=== PATIENT | male | born 1970 | race American Indian/Alaskan Native ===

== ENCOUNTER 2017-08-09 10:16 | Emergency (ER) | payer SELFPAY ==
[2017-08-09 11:02] VITALS: BP 156/93
--- NOTE | 2017-08-09 12:24 | XRay Report ---
LEFT HAND, 3 views: History: Left hand pain. The bony architecture is intact. Bony alignment is normal. No soft tissue abnormalities are seen. The joint spaces appear preserved. IMPRESSION: Normal left hand.
--- NOTE | 2017-08-09 13:54 | Cat Scan Report ---
CT HEAD WITHOUT CONTRAST: HISTORY: Loss of consciousness, pain. TECHNIQUE: Sequential 2.5mm CT images. COMPARISON: 10/30/15. FINDINGS: Cerebral Parenchyma: Within normal limits. Cerebellum: Within normal limits. Brainstem: Within normal limits. Ventricles: Normal. Sella: Normal. Extra-axial spaces: Normal. Basal Cisterns: Normal. Intracranial Hemorrhage: None. Midline Shift: None. Calvarium: Normal. Sinuses: Normal. Mastoid Air Cells: Normal. Visualized Orbits: Normal. IMPRESSION: Cranial CT scan within normal limits.
--- NOTE | 2017-08-09 13:55 | Cat Scan Report ---
CT SCAN OF THE CERVICAL SPINE: HISTORY: Loss of consciousness, pain. TECHNIQUE: Contiguous 1.25 mm axial images of the cervical spine were obtained. Sagittal and coronal reformatted images. FINDINGS: There is normal alignment of the cervical spine. The body, pedicles and posterior ligaments appear normal. No evidence of fracture or subluxation is seen. The spinal canal appears normal. The prevertebral soft tissues appear normal. IMPRESSION: Unremarkable CT of the cervical spine. No acute process is noted.
[2017-08-09] MEDS ORDERED: TORADOL IM ONE (17:04)
--- NOTE | 2017-08-09 17:17 | Emergency Department Report ---
ED Headache HPI - General Chief Complaint: Headache Stated Complaint: HIT IN HEAD Time Seen by Provider: 08/09/17 17:04 - History of Present Illness Initial Comments: This is a 47-year-old male nontoxic, well nourished in appearance, no acute signs of distress presents to the ED with c/o of headache, neck pain, and left hand pain. Patient stated this morning around 9 AM he was opening a gate in his storage room and a metal beam that was on side of the storage landed on his right sided head and neck region. Patient stated he does not know why his left hand hurts but believes the beam also hit his hand. Patient stated had loss consciousness that was brief. Patient denies any bystanders. Patient denies any numbness, tingling, fever, chills, nausea, vomiting, blurred vision, visual changes, abdominal pain. Patient describes headache as aching diffusely with level of 8 out of 10. Patient denies thunderclap headache. Patient denies any allergies. Past medical history includes diabetes and hypertension. Timing/Duration: 4-6 hours Quality: mild Head Injury Location: occipital (right ) Recent Head Trauma: head trauma < 24 hrs ago Associated Symptoms: loss of consciousness, stiff neck. denies: confusion, fatigue, facial pain, fever/chills, flushing, nausea/vomiting, nasal congestion , nasal drainage, numbness in legs/feet, rash, seizures, sinus infection, vision changes, weakness Allergies/Adverse Reactions: Allergies No Known Allergies Allergy (Verified 08/09/17 11:01) Home Medications: Ambulatory Orders Butalb/Acetaminophen/Caffeine [Fioricet 50-300-40 mg CAP] 2 cap PO Q8HR PRN #14 cap 10/30/15 Cyclobenzaprine [Flexeril] 10 mg PO QHS PRN #7 tablet 08/09/17 Ibuprofen [Motrin] 600 mg PO Q8H PRN #30 tablet 08/09/17 ED Review of Systems ROS: Stated complaint: HIT IN HEAD Other details as noted in HPI Constitutional: denies: chills, fever Eyes: denies: eye pain, eye discharge, vision change ENT: denies: ear pain, throat pain Respiratory: denies: cough, shortness of breath, wheezing Cardiovascular: denies: chest pain, palpitations Endocrine: no symptoms reported Gastrointestinal: denies: abdominal pain, nausea, diarrhea Genitourinary: denies: urgency, dysuria Musculoskeletal: denies: back pain, joint swelling, arthralgia Skin: denies: rash, lesions Neurological: headache. denies: weakness, paresthesias Psychiatric: denies: anxiety, depression Hematological/Lymphatic: denies: easy bleeding, easy bruising ED Past Medical Hx - Past Medical History Previous Medical History?: Yes Hx Hypertension: Yes Hx Diabetes: Yes Additional medical history: neuropathy - Surgical History Past Surgical History?: No - Social History Smoking Status: Never Smoker Substance Use Type: None - Medications Home Medications: Home Medications Medication Instructions Recorded Confirmed Last Taken Type Butalb/Acetaminophen/Caffeine 2 cap PO Q8HR PRN #14 cap 10/30/15 Unknown Rx [Fioricet 50-300-40 mg CAP] Cyclobenzaprine [Flexeril] 10 mg PO QHS PRN #7 tablet 08/09/17 Unknown Rx Ibuprofen [Motrin] 600 mg PO Q8H PRN #30 tablet 08/09/17 Unknown Rx ED Physical Exam - General Limitations: No Limitations General appearance: alert, in no apparent distress - Head Head exam: Present: atraumatic, normocephalic - Expanded Head Exam Expanded Head exam: Present: general tenderness (left lobe region occipital). Absent: laceration, abrasion, contusion, hematoma, melgoza's sign 1 - tenderness - Eye Eye exam: Present: normal appearance, PERRL, EOMI Pupils: Present: normal accommodation - ENT ENT exam: Present: normal exam, normal orophraynx, mucous membranes moist, TM's normal bilaterally, normal external ear exam - Neck Neck exam: Present: normal inspection, full ROM. Absent: tenderness, meningismus, lymphadenopathy, thyromegaly - Respiratory Respiratory exam: Present: normal lung sounds bilaterally. Absent: respiratory distress, wheezes, rales, rhonchi, stridor, chest wall tenderness, accessory muscle use, decreased breath sounds, prolonged expiratory - Cardiovascular Cardiovascular Exam: Present: regular rate, normal rhythm, normal heart sounds. Absent: bradycardia, tachycardia, irregular rhythm, systolic murmur, diastolic murmur, rubs, gallop - GI/Abdominal GI/Abdominal exam: Present: soft, normal bowel sounds. Absent: distended, tenderness, guarding, rebound, rigid, diminished bowel sounds - Rectal Rectal exam: Present: deferred - Extremities Exam Extremities exam: Present: normal inspection, full ROM, tenderness, normal capillary refill. Absent: pedal edema, joint swelling, calf tenderness - Expanded Upper Extremity Exam Left General: Present: normal inspection Shoulder Exam: Present: normal inspection, full ROM Upper Arm exam: Present: normal inspection, full ROM Elbow exam: Present: normal inspection, full ROM Forearm Wrist exam: Present: normal inspection, full ROM. Absent: tenderness, swelling, abrasion, laceration, ecchymosis, deformity, crepidus, dislocation, erythema, tenderness over anatomical snuff box, pain with axial thumb loading Hand Wrist exam: Present: normal inspection, full ROM, tenderness. Absent: swelling, abrasion, laceration, ecchymosis, deformity, crepidus, dislocation, erythema, amputation, nail avulsion, subungual hematoma Hand L/R Back: 1 - pain Neuro motor exam: Present: wrist extension intact, thumb opposition intact, thumb IP flexion intact, thumb adduction intact, fingers 2-5 abduction intact Neurosensory exam: Present: 2-point discrimination, radial nerve intact, ulnar nerve intact, median nerve intact Vascular: Present: vascular compromise, normal capillary refill, radial pulse, brachial pulse, ulnar pulse - Back Exam Back exam: Present: normal inspection, full ROM, paraspinal tenderness (right cervical region). Absent: tenderness, CVA tenderness (R), CVA tenderness (L), muscle spasm, vertebral tenderness, rash noted - Expanded Back Exam Expanded Back exam: Absent: saddle anesthesia Back exam: Negative Straight Leg Raising: Left, Right - Neurological Exam Neurological exam: Present: alert, oriented X3, CN II-XII intact, normal gait, reflexes normal - Expanded Neurological Exam Expanded Patient oriented to: Present: person, place, time Cranial nerves: EOM's Intact: Normal, Gag Reflex: Normal, Tongue Deviation: Normal, Nystagmus: Normal, Facial Sensation: Normal, Facial Palsy with Forehead Movement: Normal, Facial Palsy without Forehead Movement: Normal Cerebellar function: Finger to Nose: Normal, Heel to Peoples: Normal, Romberg: Normal Upper motor neuron: Jesus Neglect: Normal, Pronator Drift: Normal, Babinski Sign : Normal, Sensory Extinction: Normal Sensory exam: Upper Extremity Light Touch: Normal, Upper Extremity Pin Prick: Normal, Upper Extremity Temperature: Normal, UE 2 Point Discrimination: Normal, Lower Extremity Light Touch: Normal, Lower Extremity Pin Prick: Normal, Lower Extremity Temperature: Normal, LE 2 Point Discrimination: Normal Motor strength exam: RUE: 5, LUE: 5, RLE: 5, LLE: 5 DTR: bicep (R): 2+, bicep (L): 2+, tricep (R): 2+, tricep (L): 2+, knee (R): 2+ , knee (L): 2+, ankle (R): 2+, ankle (L): 2+ Best Eye Response (Emma): (4) open spontaneously Best Motor Response (Emma): (6) obeys commands Best Verbal Response (Emma): (5) oriented Emma Total: 15 - Psychiatric Psychiatric exam: Present: normal affect, normal mood - Skin Skin exam: Present: warm, dry, intact, normal color. Absent: rash ED Course Vital Signs 08/09/17 10:58 Temperature 98.4 F Pulse Rate 77 Respiratory 16 Rate Blood Pressure 156/93 O2 Sat by Pulse 99 Oximetry - Reevaluation(s) Reevaluation #1: 08/09/17 17:20 Patient is speaking in full sentences with no signs of distress noted. ED Medical Decision Making - Medical Decision Making This is a 47-year-old male that presents with headache and muscle neck and hand strain. Patient is stable and was examined by me. CT of cervical spine and head has been obtained and dictated by the radiologist within normal limits. Xray of the hand obtained and within normal limits. Patient was notified of the Ct and xray results with no questions noted by the patient. There is no bruising or hematoma noted to the skull or hand. No obivous signs of deformity noted. Patient is neurologically stable. Patient received Toradol 30 IM which patient stated headache and neck pain has improved and subsided. Patient is discharge with flexeril and motrin and was instructed note to operate any machinery while taking flexeril due to drowsiness. Patient was also instructed to avoid contact sports and head trauma. Patient was instructed and referred to Follow-up with a primary care doctor in 3-5 days or if symptoms worsen and continue return to emergency room as soon as possible. At time of discharge, the patient does not seem toxic or ill in appearance. No acute signs of distress noted. Patient agrees to discharge treatment plan of care. No further questions noted by the patient. Critical care attestation.: If time is entered above; I have spent that time in minutes in the direct care of this critically ill patient, excluding procedure time. ED Disposition Clinical Impression: Headache Qualifiers: Headache type: unspecified Headache chronicity pattern: acute headache Intractability: not intractable Qualified Code(s): R51 - Headache Neck muscle strain Qualifiers: Encounter type: initial encounter Qualified Code(s): S16.1XXA - Strain of muscle, fascia and tendon at neck level, initial encounter Hand strain Qualifiers: Encounter type: initial encounter Laterality: left Qualified Code(s): S66.912A - Strain of unspecified muscle, fascia and tendon at wrist and hand level, left hand, initial encounter Disposition: DC-01 TO HOME OR SELFCARE Is pt being admited?: No Does the pt Need Aspirin: No Condition: Stable Instructions: Cyclobenzaprine (By mouth), Ibuprofen (By mouth), Post Concussion Syndrome (ED), Acute Headache (ED) Additional Instructions: Follow-up with your primary care doctor in 3-5 days or if symptoms worsen such as bladder or bowel stability, chest pain, short of breath, numbness or tingling sensation in extremities, headache, dizziness, visual changes, nausea vomiting, or abdominal pain, return back to emergency room as was possible. Take ibuprofen and Flexeril as prescribed. Do not operate heavy machinery while taking Flexeril due to sedation Avoid contact sports or any head trauma. Prescriptions: Cyclobenzaprine [Flexeril] 10 mg PO QHS PRN #7 tablet PRN Reason: Muscle Spasm Ibuprofen [Motrin] 600 mg PO Q8H PRN #30 tablet PRN Reason: Pain Referrals: PRIMARY CAREMD [Primary Care Provider] - 3-5 Days ANI VALLEJO MD [Staff Physician] - 3-5 Days [facility] [Outside] - 3-5 Days [facility] [Outside] - 3-5 Days Forms: Work/School Release Form(ED)
== END 2017-08-09 17:36 | disposition home or self-care (01) ==
LOC: ED 10:16
DX: S16.1XXA Strain of muscle, fascia and tendon at neck level, initial encounter (principal); S66.912A Strain of unspecified muscle, fascia and tendon at wrist and hand level, left hand, initial encounter; R51 Headache; I10 Essential (primary) hypertension; E11.9 Type 2 diabetes mellitus without complications; G62.9 Polyneuropathy, unspecified; W31.89XA Contact with other specified machinery, initial encounter; Y93.89 Activity, other specified; Y99.8 Other external cause status; Y92.89 Other specified places as the place of occurrence of the external cause
CPT/HCPCS: 70450; 72125; 73130; 96372; 99284; J1885

== ENCOUNTER 2017-10-23 03:39 | Emergency (ER) | payer SELFPAY ==
[2017-10-23 05:15] LABS: Alanine Aminotransferase 17 units/L (7-56); BUN/Creatinine Ratio 23; Blood Urea Nitrogen 16 mg/dL (9-20); Calcium 9.4 mg/dL (8.4-10.2); Hemolysis Index 10
[2017-10-23 05:23] LABS: Hematocrit 35.9 % (35.5-45.6); Hemoglobin 11.9 gm/dl (11.8-15.2); Mean Corpuscular HGB Conc 33 % (32-34); Mean Corpuscular Hemoglobin 29 pg (28-32); Mean Corpuscular Volume 87 fl (84-94); Red Blood Count 4.14 M/mm3 (3.65-5.03)
[2017-10-23 05:24] LABS: Basophils # (Auto) 0.1 K/mm3 (0.0-0.1); Basophils % (Auto) 1.2 % (0.0-1.8); Eosinophils # (Auto) 0.4 K/mm3 (0.0-0.4); Eosinophils % (Auto) 3.6 % (0.0-4.3); Lymphocytes # (Auto) 3.8 K/mm3 (1.2-5.4); Lymphocytes % (Auto) 36.7 % (13.4-35.0); Mean Platelet Volume 8.3 fl (6-12); Monocytes % (Auto) 9.6 % (0.0-7.3); Platelet Count 326 K/mm3 (140-440); Red Cell Distribution Width 13.4 % (13.2-15.2)
[2017-10-23 06:06] LABS: Amorphous Crystals,Urine Few; Bilirubin,Urine NEG (Negative); Blood,Urine NEG (Negative); Color,Urine Straw (Yellow); Protein,Urine <15 mg/dL mg/dL (Negative); Urobilinogen,Urine < 2.0 mg/dL (<2.0)
[2017-10-23] MEDS ORDERED: NORCO 10/325 PO ONE (08:18)
--- NOTE | 2017-10-23 08:35 | Emergency Department Report ---
ED Back Pain/Injury HPI - General Stated Complaint: FREQ/BURNING URINATION Time Seen by Provider: 10/23/17 08:05 Source: patient Limitations: No Limitations - History of Present Illness Initial Comments: 47-year-old male past medical history diabetes, hypertension presents with complaint of 4-5 days of left flank pain radiating down the left buttock region. Patient denies any fever chills nausea vomiting or trauma. Denies any falls or direct trauma to area. States he took some Tylenol and Motrin and Vicodin at home with minimal relief. Patient denies any rash. Patient is awake alert and oriented 3. States he has been urinating slightly more than usual. Denies any dysuria or hematuria. Denies any chest pain shortness of breath or palpitations. MD Complaint: back pain Onset/Timin -: days(s) Radiation: buttocks Severity: moderate Severity scale (0 -10): 6 Quality: sharp, aching Consistency: intermittent Improves With: none - Related Data Previous Rx's Medication Instructions Recorded Last Taken Type Butalb/Acetaminophen/Caffeine 2 cap PO Q8HR PRN #14 cap 10/30/15 Unknown Rx [Fioricet 50-300-40 mg CAP] Cyclobenzaprine [Flexeril] 10 mg PO QHS PRN #7 tablet 08/09/17 Unknown Rx Ibuprofen [Motrin] 600 mg PO Q8H PRN #30 tablet 08/09/17 Unknown Rx HYDROcodone/APAP 10-325 [Milan 1 each PO Q6HR PRN #10 tablet 10/23/17 Unknown Rx 10/325] Ibuprofen [Motrin] 600 mg PO Q8H PRN #25 tablet 10/23/17 Unknown Rx Ondansetron [Zofran Odt] 4 mg PO Q8H PRN #8 tab.rapdis 10/23/17 Unknown Rx Allergies Allergy/AdvReac Type Severity Reaction Status Date / Time No Known Allergies Allergy Verified 08/09/17 11:01 ED Review of Systems ROS: Stated complaint: FREQ/BURNING URINATION Other details as noted in HPI Constitutional: denies: chills, fever Eyes: denies: eye pain, eye discharge, vision change ENT: denies: ear pain, throat pain Respiratory: denies: cough, shortness of breath, wheezing Cardiovascular: denies: chest pain, palpitations Endocrine: no symptoms reported Gastrointestinal: denies: abdominal pain, nausea, diarrhea Genitourinary: denies: urgency, dysuria Musculoskeletal: denies: back pain, joint swelling, arthralgia Skin: denies: rash, lesions Neurological: denies: headache, weakness, paresthesias Psychiatric: denies: anxiety, depression Hematological/Lymphatic: denies: easy bleeding, easy bruising ED Past Medical Hx - Past Medical History Previous Medical History?: Yes Hx Hypertension: Yes Hx Diabetes: Yes Additional medical history: neuropathy - Surgical History Past Surgical History?: No - Social History Smoking Status: Former Smoker Substance Use Type: None - Medications Home Medications: Home Medications Medication Instructions Recorded Confirmed Last Taken Type Butalb/Acetaminophen/Caffeine 2 cap PO Q8HR PRN #14 cap 10/30/15 Unknown Rx [Fioricet 50-300-40 mg CAP] Cyclobenzaprine [Flexeril] 10 mg PO QHS PRN #7 tablet 08/09/17 Unknown Rx Ibuprofen [Motrin] 600 mg PO Q8H PRN #30 tablet 08/09/17 Unknown Rx HYDROcodone/APAP 10-325 [Milan 1 each PO Q6HR PRN #10 tablet 10/23/17 Unknown Rx 10/325] Ibuprofen [Motrin] 600 mg PO Q8H PRN #25 tablet 10/23/17 Unknown Rx Ondansetron [Zofran Odt] 4 mg PO Q8H PRN #8 tab.rapdis 10/23/17 Unknown Rx ED Physical Exam - General Limitations: No Limitations General appearance: alert, in no apparent distress - Head Head exam: Present: atraumatic, normocephalic - Eye Eye exam: Present: normal appearance, PERRL, EOMI - ENT ENT exam: Present: mucous membranes moist - Neck Neck exam: Present: normal inspection - Respiratory Respiratory exam: Present: normal lung sounds bilaterally. Absent: respiratory distress - Cardiovascular Cardiovascular Exam: Present: regular rate, normal rhythm. Absent: systolic murmur, diastolic murmur, rubs, gallop - GI/Abdominal GI/Abdominal exam: Present: soft (abdomen soft nontender nondistended. Obese abdomen), normal bowel sounds - Rectal Rectal exam: Present: deferred - Extremities Exam Extremities exam: Present: normal inspection, full ROM - Back Exam Back exam: Present: normal inspection, CVA tenderness (L) (left-sided flank tenderness on percussion) - Neurological Exam Neurological exam: Present: alert, oriented X3, CN II-XII intact, normal gait - Psychiatric Psychiatric exam: Present: normal affect, normal mood - Skin Skin exam: Present: warm, dry, intact, normal color. Absent: rash ED Course Vital Signs 10/23/17 10/23/17 10/23/17 04:28 04:37 08:44 Temperature 98.5 F Pulse Rate 78 72 Respiratory 1 L 18 Rate Blood Pressure 179/93 180/87 O2 Sat by Pulse 98 98 Oximetry ED Medical Decision Making - Lab Data Result diagrams: 10/23/17 04:40 10/23/17 04:40 - Medical Decision Making A/P: Renal colic 1-Zofran, Motrin, Milan when necessary 2-case discussed with Dr. Mueller before discharge. This patient's urinalysis shows no nitrites no leukocytes or leukocyte esterase will refrain from antibiotics at this time 3-CT shows some perinephric fat stranding which is likely inflammatory as urinalysis is unremarkable. 4- I advised patient to return to the ED for worsening pain, fever chills nausea vomiting, inability to tolerate anything by mouth Critical care attestation.: If time is entered above; I have spent that time in minutes in the direct care of this critically ill patient, excluding procedure time. ED Disposition Clinical Impression: Renal colic on left side Disposition: DC-01 TO HOME OR SELFCARE Is pt being admited?: No Does the pt Need Aspirin: No Condition: Stable Instructions: Renal Colic (ED), Flank Pain (ED) Prescriptions: HYDROcodone/APAP 10-325 [Milan 10/325] 1 each PO Q6HR PRN #10 tablet PRN Reason: Pain Ibuprofen [Motrin] 600 mg PO Q8H PRN #25 tablet PRN Reason: Pain Ondansetron [Zofran Odt] 4 mg PO Q8H PRN #8 tab.rapdis PRN Reason: Nausea Referrals: [facility] [Provider Group] - 3-5 Days [facility] [Provider Group] - 3-5 Days Forms: Work/School Release Form(ED) Time of Disposition: 09:13
[2017-10-23 08:50] VITALS: BP 180/87
[2017-10-23] MEDS ORDERED: CATAPRES ONE (08:50)
[2017-10-23] MEDS ORDERED: CATAPRES PO ONE (08:52)
--- NOTE | 2017-10-23 08:58 | Cat Scan Report ---
FINAL REPORT EXAM: CT ABDOMEN PELVIS WO CON HISTORY: left flank pain ? kidney stone TECHNIQUE: CT images obtained through the Abdomen and Pelvis without contrast. Transaxial,coronal and sagittal reformats are provided. PRIORS: None. FINDINGS: Imaged intrathoracic contents are unremarkable. Kidneys are normal in size, axis and position. No hydronephrosis or nephrolithiasis. Mild bilateral perinephric stranding/scarring. Minimally distended urinary bladder is with incomplete evaluation of the wall. The ureters are normal in course and caliber. No stones are seen within the urinary bladder. The liver, gallbladder, pancreas, spleen, and adrenal glands demonstrate a normal noncontrast appearance. Hollow enteric organs are normal in course and caliber. Appendix is normal. No intra-abdominal free air/fluid or lymphadenopathy. Aorta is normal in course and caliber. Superficial soft tissues are unremarkable. No acute or aggressive appearing skeletal findings. IMPRESSION: No CT evidence of obstructive urolithiasis or other acute abdominal or pelvic findings. Mild bilateral perinephric stranding may be acute or chronic. Correlation for recently passed stone or upper urinary tract infection.
[2017-10-23] MEDS ORDERED: TORADOL IM ONE (09:03)
== END 2017-10-23 09:21 | disposition home or self-care (01) ==
LOC: ED 03:39
DX: N23 Unspecified renal colic (principal); I10 Essential (primary) hypertension; E11.9 Type 2 diabetes mellitus without complications
CPT/HCPCS: 36415; 74176; 80053; 81001; 85025; 96372; 99284; J1885

== ENCOUNTER 2018-08-05 07:30 | Emergency (ER) | payer OTHER ==
[2018-08-05 07:40] VITALS: BP 176/97
[2018-08-05] MEDS ORDERED: NACL 0.9% 1000 ML 1,000 ML IV ONE (07:51)
[2018-08-05] MEDS ORDERED: TORADOL IV ONE (07:51)
--- NOTE | 2018-08-05 07:52 | Emergency Department Report ---
ED Back Pain/Injury HPI - General Chief Complaint: Back Pain/Injury Stated Complaint: KIDNEY STONE Time Seen by Provider: 08/05/18 07:44 Source: patient Limitations: No Limitations - History of Present Illness Initial Comments: Mr. Torres is a 48-year-old -[place] male who comes to the ER today complaining of back pain. The provider went to get the patient from the waiting room and he was walking fine when he was in respiratory to his seat, however, when I called him to the door he stood up and was very dramatically limping on both legs holding his lower back. He proceeded to tell me that he has had kidney stones in the past and that's what he believes his pain is from. He denies hematuria or dysuria. Patient is on metformin, insulin 7030, clonidine 0.2, and additional medications that he cannot remember. He endorses a history of kidney stones 2 years ago, diabetes, hypertension and obesity. He denies coronary artery disease or strokes. Patient denies trauma. He did state that he climbed into a truck yesterday and thinks that maybe he strained his back then. Patient has been seen as before in the past for his chronic back pain, which she denies today. Patient has also been seen for presumed kidney stones in the ER in the past. -: hour(s) Similar Symptoms Previously: Yes Place: home Severity: severe Quality: aching Consistency: constant Improves With: none Worsens With: none Context: unknown Associated Symptoms: denies other symptoms - Related Data Previous Rx's Medication Instructions Recorded Last Taken Type Cyclobenzaprine [Flexeril] 10 mg PO QHS PRN #7 tablet 08/05/18 Unknown Rx Naproxen [Naprosyn] 500 mg PO BID PRN #20 tablet 08/05/18 Unknown Rx Tamsulosin HCl [Flomax] 0.4 mg PO DAILY #10 cap.er.24h 08/05/18 Unknown Rx Allergies Allergy/AdvReac Type Severity Reaction Status Date / Time No Known Allergies Allergy Verified 08/09/17 11:01 ED Review of Systems ROS: Stated complaint: KIDNEY STONE Other details as noted in HPI Comment: All other systems reviewed and negative Constitutional: denies: chills, fever Eyes: denies: eye pain ENT: denies: ear pain Respiratory: denies: cough Cardiovascular: denies: dyspnea on exertion Endocrine: denies: excessive sweating Gastrointestinal: as per HPI. denies: abdominal pain, nausea, vomiting, d iarrhea, constipation, hematemesis, melena Genitourinary: as per HPI. denies: urgency, dysuria, frequency, hematuria, discharge, testicular pain, testicular mass Musculoskeletal: as per HPI, back pain. denies: joint swelling, arthralgia Skin: denies: rash Neurological: denies: headache Psychiatric: denies: anxiety ED Past Medical Hx - Past Medical History Medical history: hypertension neuropathy, hpld, dm Family history: no significant family history ED Back Pain Physical Exam - Exam General: Vital signs noted. No distress. Alert and acting appropriately. a/o s1s2 lungs cta abd snt no cva tenderness neg straight leg raise no focal weakness no s/s cauda equina Back/Abdomen: No Abdominal Tenderness, No Perithoracic Tenderness, No Perilumbar Tenderness, No Sacroiliac Tenderness, No Flank Tenderness, No Straight Leg Raise Pain Neuro: Yes Normal Sensation, Yes Normal DTR's, No Motor Weakness, No Normal Gait (dramatically limping on both legs. ) ED Course Vital Signs 08/05/18 07:33 Temperature 98.3 F Pulse Rate 92 H Respiratory 16 Rate Blood Pressure 176/97 O2 Sat by Pulse 100 Oximetry Ed Back Pain Tests - Tests Tests: Normal UA ED Medical Decision Making - Lab Data Result diagrams: 08/05/18 07:55 08/05/18 07:54 - Medical Decision Making Labs 08/05/18 08/05/18 08/05/18 07:48 07:54 07:55 WBC 8.7 RBC 4.44 Hgb 13.3 Hct 37.9 MCV 85 MCH 30 MCHC 35 H RDW 13.3 Plt Count 297 Sodium 138 Potassium 3.6 Chloride 97.1 L Carbon Dioxide 25 Anion Gap 20 BUN 11 Creatinine 0.7 L Estimated GFR > 60 BUN/Creatinine Ratio 16 Glucose 369 H Calcium 8.9 Urine Color Yellow Urine Turbidity Clear Urine pH 6.0 Ur Specific [place] 1.022 Urine Protein 100 mg/dl Urine Glucose (UA) >=500 Urine Ketones Neg Urine Blood Neg Urine Nitrite Neg Urine Bilirubin Neg Urine Urobilinogen < 2.0 Ur Leukocyte Esterase Neg Urine WBC (Auto) 1.0 Urine RBC (Auto) 1.0 U Epithel Cells (Auto) < 1.0 labs noted ua noted no fever no cva tenderness no dysuria no hematuria no point tenderness over spine abd snt 1L NS toradol 30 mg IV for pain dc home with flomax, flexeril and nsaid to cover both a/c back pain and a ?stone. he has a urologist but was given another referral today. Pt wanting a shot like last time he states. He got toradol IM then- today he got it IV. I explained to him the dose issues and impact on his kidney function. Dc home with rx and follow up ambulatory on dc. - Differential Diagnosis ro k stone Critical care attestation.: If time is entered above; I have spent that time in minutes in the direct care of this critically ill patient, excluding procedure time. ED Disposition Clinical Impression: Back pain, Chronic pain Disposition: DC-01 TO HOME OR SELFCARE Is pt being admited?: No Does the pt Need Aspirin: No Condition: Stable Instructions: Back Pain (ED) Additional Instructions: MEDS ORDERED FOLLOW UP PCP FOLLOW UP UROLOGT HYDRATE WELL WITH WATER Prescriptions: Cyclobenzaprine [Flexeril] 10 mg PO QHS PRN #7 tablet PRN Reason: Muscle Spasm Cyclobenzaprine [Flexeril] 10 mg PO TID PRN #10 tablet PRN Reason: Muscle Spasm Naproxen [Naprosyn] 500 mg PO BID PRN #20 tablet PRN Reason: Pain Tamsulosin HCl [Flomax] 0.4 mg PO DAILY #10 cap.er.24h Referrals: SHANE FELDER [Primary Care Provider] - 3-5 Days DAXA GONZALEZ MD [Staff Physician] - 3-5 Days Time of Disposition: 08:32
[2018-08-05 08:01] LABS: Bilirubin,Urine NEG (Negative); Blood,Urine NEG (Negative); Color,Urine Yellow (Yellow); Urobilinogen,Urine < 2.0 mg/dL (<2.0)
[2018-08-05 08:06] LABS: Hematocrit 37.9 % (35.5-45.6); Hemoglobin 13.3 gm/dl (11.8-15.2); Mean Corpuscular HGB Conc 35 % (32-34); Mean Corpuscular Volume 85 fl (84-94); Platelet Count 297 K/mm3 (140-440); Red Blood Count 4.44 M/mm3 (3.65-5.03); Red Cell Distribution Width 13.3 % (13.2-15.2)
[2018-08-05 08:26] LABS: BUN/Creatinine Ratio 16; Blood Urea Nitrogen 11 mg/dL (9-20); Calcium 8.9 mg/dL (8.4-10.2); Hemolysis Index 9
== END 2018-08-05 09:36 | disposition home or self-care (01) ==
LOC: ED 07:30
DX: M54.9 Dorsalgia, unspecified (principal); G89.29 Other chronic pain
CPT/HCPCS: 36415; 80048; 81001; 85027; 96374; 99283; J1885; J7030

== ENCOUNTER 2020-06-09 03:42 | Emergency (ER) | payer OTHER ==
[2020-06-09 03:54] VITALS: BP 191/108
== END 2020-06-09 09:20 | disposition left against medical advice (07) ==
LOC: ED 03:42
DX: R51.9 Headache, unspecified (principal); Z53.21 Procedure and treatment not carried out due to patient leaving prior to being seen by health care provider